=== PATIENT | male | born 1955 | race Caucasian/White ===

== ENCOUNTER 2024-04-26 09:00 | Day surgery (SDC) | payer MEDICARE, SELFPAY ==
[2024-04-26 09:06] VITALS: BP 165/103; PULSE 77; RESP 18; TEMP 35.8; O2SAT 97
[2024-04-26] MEDS: Tropicam./Phenyleph. (1/2.5%) 5 ML BTL OU ×3 (09:24→09:38)
--- NOTE | 2024-04-26 09:44 | W.ANESPRE ---
General Info Date of Service Date Performed: 04/26/24 Height: 6 ft Weight: 130.9 kg Body Mass Index (BMI): 39.1 Surgical Procedure: Operation Date: 04/26/24 11:40 Proposed Procedure Side Surgeon p Cataract Extraction with IOL Implant Bilateral Micah Terrazas MD Meds Allergies and Home Medications Allergies Allergy/AdvReac Type Severity Reaction Status Date / Time pollen extracts Allergy Intermediate Other (See Verified 04/26/24 09:33 Comment) atorvastatin AdvReac Intermediate Other (See Verified 04/26/24 09:33 Comment) Home Medication ?Medication ?Instructions ?Recorded aspirin 81 mg chewable tablet 81 mg PO DAILY 04/24/24 (Aspirin Childrens) cetirizine 10 mg tablet (24Hour 10 mg PO DAILY PRN 04/24/24 Allergy) cyanocobalamin (vitamin B-12) 1,000 mcg PO DAILY 04/24/24 1,000 mcg tablet empagliflozin 10 mg tablet 10 mg PO DAILY 04/24/24 glimepiride 1 mg tablet 1 mg PO DAILY 04/24/24 lisinopril 20 1 tab PO BID 04/24/24 mg-hydrochlorothiazide 12.5 mg tablet metformin 500 mg tablet 500 mg PO DAILY 04/24/24 naproxen sodium 220 mg capsule 220 mg PO BID PRN 04/24/24 (Aleve) omega-3 1,050 ep-mio-jpm-dpa-fish 1 cap PO DAILY 04/24/24 oil 1,200 mg capsule ([place]-3 (with docosapentaenoic acid)) rosuvastatin 5 mg tablet (Crestor) 5 mg PO DAILY 04/24/24 sertraline 50 mg tablet 50 mg PO DAILY 04/24/24 sildenafil 50 mg tablet 50 mg PO DAILY PRN 04/24/24 triamcinolone acetonide 0.1 % 1 applic topical BID 04/24/24 topical cream Current Visit Medications: Current Medications Generic Name Dose Route Start Last Admin Trade Name Freq PRN Reason Stop Dose Admin Acetaminophen 1,000 mg 04/26/24 06:00 Acetaminophen 500 Mg Tab PO 05/26/24 05:59 Q4H PRN PRN Balanced Salt Solution 500 ml 04/26/24 06:00 Balanced Salt Soln.-Plus 500 Ml Bag OP 05/26/24 05:59 DIRECTED MARISELA Miscellaneous Medication 0 ml 04/26/24 06:00 Prednisolone 1%, Moxifloxacin 0.5%, Bromfenac 0.09% 5.6ml Btl OU 05/26/24 05:59 DIRECTED [facility] Miscellaneous Medication 0 ml 04/26/24 06:00 Tropicam./Phenyleph. (1/2.5%) 5 Ml Btl OU 05/26/24 05:59 DIRECTED [facility] Tetracaine HCl 0 ml 04/26/24 06:00 Tetracaine 0.5% 4 Ml Btl OU 05/26/24 05:59 DIRECTED [facility] PFSH Active Problems Active Problems: Problem Status Onset Code Cortical age-related cataract, right eye Acute H25.011 Nuclear age-related cataract, right eye Acute H25.11 Cortical age-related cataract, left eye Acute H25.012 Nuclear age-related cataract, left eye Acute H25.12 Viral URI with cough Acute J06.9 Bilateral cataracts Acute H26.9 Medical History Medical History History of dehydration with hospitalization. Pre-syncope 2007, resolved Atypical chest pain thought likely to be coronary vasospasm after extensive work up. Renal infarct Atherosclerotic vascular disease LVH (left ventricular hypertrophy) Former smoker Tubular adenoma Cervical radiculopathy Posterior tibial tendon dysfunction (PTTD) of right lower extremity Depression Anxiety DM (diabetes mellitus) type 2, uncontrolled, with ketoacidosis Erectile dysfunction Hyperlipemia Allergic rhinitis Periodic limb movement Pain of left calf Foot pain, left Bilateral carpal tunnel syndrome severe Diabetes mellitus with ketoacidosis without coma BMI 40.0-44.9, adult Primary hypertension Leg edema Nocturnal hypoxemia Surgical History Surgical History History of arthroscopy of knee medial and lateral meniscectomy, shaving chondroplasty, hypertrophic plica Status post shoulder surgery History of colonoscopy Status post cardiac catheterization Per pt states 10+ years ago-Per pt. states they just went in to look around, but they never found anything History of tonsillectomy and adenoidectomy History of cervical discectomy Tobacco Smoking/Tobacco Use Status: Former Tobacco Use Alcohol Alcohol Intake: current Alcohol intake frequency: a few times a week Alcohol type: beer Substance Use Substance use: Never Substance use type: does not use Vital Signs and Lab Results Vital Signs Most Recent Vital Signs in EMR: Most Recent Vital Signs Temp Pulse Resp BP Pulse Ox 35.8 C L 77 18 165/103 H 97 04/26/24 09:06 04/26/24 09:06 04/26/24 09:06 04/26/24 09:06 04/26/24 09:06 Point of Care Results Point of Care Results: Finger Stick Blood Glucose 261 04/26/24 09:26 Lab Results Blood Type / Crossmatch: No Data to Display Complete Blood Count: No Data to Display Complete Metabolic Panel: No Data to Display Liver Function Panel: No Data to Display Coagulation Panel: No Data to Display Cardiac Panel: No Data to Display Arterial Blood Gas: No Data to Display Venous Blood Gas: No Data to Display Pancreas Panel: No Data to Display Thyroid Panel: No Data to Display Infectious Disease: No Data to Display Blood Cultures: No Data to Display Toxicology Panel: No Data to Display Anesthesia Assessment and Plan Anesthesia History Personal History: No History of Anesthesia Complications Family History: No Family History of Anesthesia Complications Exercise Tolerance Exercise Tolerance: Metabolic Equivalents>4 Cardiac & Pulmonary Exam Cardiac Exam: Normal S1/S2 Heart Sounds Pulmonary Exam: Clear Bilateral Breath Sounds Implantable Cardiac Device Does patient have a Pacemaker or an ICD?: No Airway Exam Known Difficult Airway: No Mallampati Class: 2 Mouth Opening: Normal (> 3cm) Thyromental Distance: Greater than 3 cm Neck Range of Motion: Full ROM Neck Circumference: Thick Teeth Condition: Removable Dentures/Plates Upper ASA Classification ASA Score: ASA 3 Emergency Case?: No NPO Status NPO Status: NPO Clears >2 hours, Solids >8 hours Anesthesia Plan Resuscitation Status: Full Code Anesthesia Technique: MAC Anesthesia Airway Planned: Natural Airway Monitors Used: Standard Monitors
[2024-04-26 10:14] VITALS: BMI 39.1
[2024-04-26] MEDS: Povidone-Iodine Ophth 30 ML BTL ×2 (10:33→11:03)
[2024-04-26] MEDS: Duovisc Viscoelastic System EACH 1 EACH ×2 (10:40→11:02)
[2024-04-26] MEDS: Phenylephrine/Lidocaine (15/10) MG/ML 1 ML VIAL ×2 (10:40→11:02)
[2024-04-26] MEDS: Lidocaine 1% Pres-Free 5 ML VIAL ×2 (10:40→11:02)
[2024-04-26] MEDS: Tetracaine 0.5% 4 ML BTL OU ×2 (10:41→11:04)
[2024-04-26] MEDS: Balanced Salt Soln.-PLUS 500 ML BAG OP ×2 (10:41→11:03)
[2024-04-26] MEDS: Prednisolone 1%, Moxifloxacin 0.5%, Bromfenac 0.09% 5.6ML BTL OU ×2 (10:43→11:17)
[2024-04-26 11:24] VITALS: BP 160/90; PULSE 75; RESP 18; TEMP 36.5; O2SAT 95
--- NOTE | 2024-04-26 11:24 | PDOC.DSDIS_ITS ---
Date of service: 04/26/24 Discharge Plan Disposition Patient Disposition: Home Discharge Details Attending Provider: Micah Terrazas Primary Care Provider: Natacha Gibson Home Meds and New Rx's Prescriptions: No Action aspirin [Aspirin Childrens] 81 mg tablet,chewable 81 mg PO DAILY naproxen sodium [Aleve] 220 mg capsule 220 mg PO BID PRN [address]-3 (with dpa) 1,050-1,200 mg capsule 1 cap PO DAILY cyanocobalamin (vitamin B-12) 1,000 mcg tablet 1,000 mcg PO DAILY empagliflozin 10 mg tablet 10 mg PO DAILY sildenafil 50 mg tablet 50 mg PO DAILY PRN Rx Instructions: administer 30 minutes to 4 hours before activity sertraline 50 mg tablet 50 mg PO DAILY glimepiride 1 mg tablet 1 mg PO DAILY lisinopril-hydrochlorothiazide 20-12.5 mg tablet 1 tab PO BID cetirizine [24Hour Allergy] 10 mg tablet 10 mg PO DAILY PRN rosuvastatin [Crestor] 5 mg tablet 5 mg PO DAILY metformin 500 mg tablet 500 mg PO DAILY triamcinolone acetonide 0.1 % cream 1 applic topical BID Discharge Instructions Stand Alone Forms: DSU Post-Op CataractKajal (DSU) Discharge Orders Discharge Orders: Discharge Order (Routine); Ordered 04/26/24 Ordered By: Micah Terrazas DS: Diagnosis Discharge Diagnosis (1) Cortical age-related cataract, right eye: Status: Resolved (2) Nuclear age-related cataract, right eye: Status: Resolved (3) Cortical age-related cataract, left eye: Status: Resolved (4) Nuclear age-related cataract, left eye: Status: Resolved
--- NOTE | 2024-04-26 11:25 | ROE_ITS ---
Operative Note Operative Note PRE-OP DIAGNOSIS: Nuclear/cortical cataract, both eyes POST-OP DIAGNOSIS: same PROCEDURE: Immediately sequential bilateral cataract extraction using phacoemulsification with intraocular lens implants, both eyes SURGEON: Micah Terrazas Refer to Anesthesia Record PATHOLOGY: none sent COMPLICATIONS: None Patient was transported to: same day Patient's condition: stable Implants: Gurmeet Clareon [id number] intraocular lenses both eyes Indications: Progressive decreased vision due to cataract, both eyes Procedure Description: CATARACT SURGERY OPERATIVE REPORT PREOPERATIVE DIAGNOSIS: Nuclear/cortical cataract, both eyes POSTOPERATIVE DIAGNOSIS: Same OPERATION: Immediately sequential bilateral cataract extraction using phacoemulsification with posterior chamber intraocular lens implant, both eyes IOL OS: IOL Sheet Metal Mechanic/Model: Gurmeet Clareon [id number] IOL Power: + 19.0 diopters IOL Serial Number: [id number] Optic Diameter: 6.0mm Haptic/Overall Diameter: 13.0mm PHACO INFO OS: Gurmeet Centurion Vision System with OZil and Active Fluidics Cumulative Dispersed Energy (CDE): 2.74 seconds IOL OD: IOL Sheet Metal Mechanic/Model: Gurmeet CLareon [id number] IOL Power: + 19.0 diopters IOL Serial Number: [id number] Optic Diameter: 6.0mm Haptic/Overall Diameter: 13.0mm PHACO INFO OD: Gurmeet Centurion Vision System with OZil and Active Fluidics Cumulative Dispersed Energy (CDE): 4.19 seconds SURGEON: Micah Terrazas MD, YESSICA ANESTHESIA: Monitored Anesthesia Care (MAC), with local sub-tenon's anesthetic infiltration COMPLICATIONS: None SPECIMENS: None INDICATIONS FOR PROCEDURE: The patient is a 68-year-old male with history of diminished visual acuity in both eyes secondary to the development of bilateral nuclear/cortical cataract. He is significantly symptomatic that he desires cataract surgery in attempt to improve and maximize his vision. The option of cataract surgery was offered to the patient and he wished to proceed. The patient requested to have bilateral immediately sequential same-day cataract surgery. See office notes for detailed information. PROCEDURE: The correct surgical eye was identified and marked as both eyes and the pupils were dilated in the preoperative area using mydriatics and cycl oplegics. The dilated pupil size was 7.0 mm. He elected to proceed without oral sedation. The patient was brought to the operating room where cardiopulmonary monitoring was instituted and surgical time-out was performed, confirming the correct operative eye and IOL power. Attention was first directed to the right eye. Topical anesthesia was administered and ophthalmic povidone-iodine 5% was instilled into the conjunctival fornices. The radha-ocular area was prepped with Betadine 10% solution and draped in the usual sterile fashion for intraocular surgery, including an aperture drape. A Tegaderm transparent film dressing was cut in half and used to cover the lashes and lid margins. Care was taken to sequester the lashes and lid margins under the Tegaderm dressing. A lid speculum was placed between the lids of the operative eye and the operating microscope was maneuvered into position. Maurisio scissors were then used to make a conjunctival buttonhole approximately 6mm posterior to the limbus in the inferonasal quadrant. Blunt dissection was carried out to expose bare sclera, and a blunt-tipped sub-tenon?s anesthesia cannula was introduced and passed posteriorly along the globe where non- preserved plain lidocaine was injected into posterior sub-Tenon?s space. A sideport knife was used to make a paracentesis port.. Intraocular phenylephrine/lidocaine was injected into the anterior chamber. The anterior chamber was filled with viscoelastic. . A keratome knife was used to construct a temporal clear corneal tunnel extending approximately 2.0mm into clear cornea. The eye was noted to be quite soft.. A flap was raised on the anterior capsule and capsulorhexis forceps were used to complete a continuous curvilinear capsulorhexis of 5.0 mm. Balanced salt solution was then used to perform cortical cleaving hydrodissection and nuclear hydrodelineation until the lens could be freely rotated within the capsular bag. The lens nucleus was then disassembled and removed within the capsular bag and iris plane using phacoemulsification. Residual cortical material was removed using the 45-degree angled silicone I/A tip with 0.3mm port. The posterior capsule was carefully polished to remove as much residual lens epithelial cells as safely possible. The capsular bag was then inflated and the anterior chamber deepened with cohesive viscoelastic. The lens implant described above was inserted into the capsular bag using the Gurmeet Autonome pre-loaded injector.. A Kuglen hook was used to dial the IOL into position. Residual viscoelastic was then removed first from posterior to the IOL, then from the anterior chamber using the I/A handpiece. The lens implant was noted to center nicely within the capsular bag. The incisions were stromally hydrated, and the anterior chamber was reformed using BSS. Then 0.4cc of moxifloxacin 1.5mg/ml were injected into the capsular bag and anterior chamber. The incisions were checked with a Weck spear and found to be secure. Several drops of ophthalmic povidone-iodine 5% were then applied to the eye followed by two drops of topical combination antibiotic/steroids/NSAID solution. The drapes were removed and a clear plastic protective eye shield was placed over the eye. Attention was then directed toward the left eye, where an entirely new set of instruments, tubing, medications, fluids, gowns, gloves, and drapes were used. Topical anesthesia was administered and ophthalmic povidone-iodine 5% was instilled into the conjunctival fornices. The radha-ocular area was prepped with Betadine 10% solution and draped in the usual sterile fashion for intraocular surgery, including an aperture drape. A Tegaderm transparent film dressing was cut in half and used to cover the lashes and lid margins. Care was taken to sequester the lashes and lid margins under the Tegaderm dressing. A lid speculum was placed between the lids of the operative eye and the operating microscope was maneuvered into position. Maurisio scissors were then used to make a conjunctival buttonhole approximately 6mm posterior to the limbus in the inferonasal quadrant. Blunt dissection was carried out to expose bare sclera, and a blunt-tipped sub-tenon?s anesthesia cannula was introduced and passed posteriorly along the globe where non- preserved plain lidocaine was injected into posterior sub-Tenon?s space. A sideport knife was used to make a paracentesis port.. Intraocular phenylephrine/lidocaine was injected into the anterior chamber. The anterior chamber was filled with viscoelastic. . A keratome knife was used to con struct a temporal clear corneal tunnel extending approximately 2.0mm into clear cornea.. A flap was raised on the anterior capsule and capsulorhexis forceps were used to complete a continuous curvilinear capsulorhexis of 5.0 mm. Balanced salt solution was then used to perform cortical cleaving hydrodissection and nuclear hydrodelineation until the lens could be freely rotated within the capsular bag. The lens nucleus was then disassembled and removed within the capsular bag and iris plane using phacoemulsification. Residual cortical material was removed using the 45-degree angled silicone I/A tip with 0.3mm port. The posterior capsule was carefully polished to remove as much residual lens epithelial cells as safely possible. The capsular bag was then inflated and the anterior chamber deepened with cohesive viscoelastic. The lens implant described above was inserted into the capsular bag using the Gurmeet Autonome pre-loaded injector.. A Kuglen hook was used to dial the IOL into posi tion. Residual viscoelastic was then removed first from posterior to the IOL, then from the anterior chamber using the I/A handpiece. The lens implant was noted to center nicely within the capsular bag. The incisions were stromally hydrated, and the anterior chamber was reformed using BSS. Then 0.4cc of moxifloxacin 1.5mg/ml were injected into the capsular bag and anterior chamber. The incisi ons were checked with a Weck spear and found to be secure. Several drops of ophthalmic povidone-iodine 5% were then applied to the eye followed by two drops of combination antibiotic/steroid/NSAID solution. The drapes were removed and a clear plastic protective eye shield was placed over the eye. The patient was then returned to Same Day Surgery in stable condition. Date of Procedure: 04/26/24
--- NOTE | 2024-04-26 12:21 | W.ANESPOSTOP ---
Postoperative Evaluation Date, Time and Location Date Performed: 04/26/24 Time Performed: 11:50 Patient Location: Day Surgery Unit Vital Signs Most Recent Imported Vital Signs: Most Recent Vital Signs Temp Pulse Resp BP Pulse Ox 36.5 C 75 18 160/90 H 95 04/26/24 11:24 04/26/24 11:24 04/26/24 11:24 04/26/24 11:24 04/26/24 11:24 Pain Score Most Recent Pain Score: Most Recent Pain Score Pain Level 0 04/26/24 11:24 Assessment Mental Status: Awake (Alert & Oriented to Patient Baseline) Airway and Respiratory Function: Patent airway with normal (patient baseline) respiratory exam Cardiovascular Function: Hemodynamically Stable Hydration Status: Adequately Hydrated Nausea & Vomiting: No Nausea or Vomiting Pain: Pt. Denies Any Pain Peripheral Nerve Block: Patient did not receive a nerve block
== END 2024-04-26 11:59 | disposition home or self-care (01) ==
PROVIDERS: PCP Family Medicine; Visit Provider Ophthalmology
PROC: (CPT 66984; principal; 2024-04-26 11:30)
DX: H25.011 Cortical age-related cataract, right eye (principal); H25.11 Age-related nuclear cataract, right eye; H25.012 Cortical age-related cataract, left eye; H25.12 Age-related nuclear cataract, left eye
CPT/HCPCS: 66984; 00123; V2632; J2003